=== PATIENT | female | born 1960 | race African-American/Black ===

== ENCOUNTER 2020-10-09 12:54 | Inpatient (IN) | payer MEDICAID ==
[2020-10-09] VITALS (7 sets, daily range): BP systolic 137–148; BP diastolic 68–96
[~2020-10-09] VITALS: Ht 172.7 cm; Wt 79.0 kg
[2020-10-09] MEDS ORDERED: ONDANSETRON HCL 4MG/2ML INJ IV STA ×2 (13:40→17:33)
[2020-10-09] MEDS ORDERED: MAGNESIUM/ALUMINUM HYDROXIDE/SIMETHICONE 30ML UDC PO STA (13:40)
[2020-10-09] MEDS ORDERED: SODIUM CHLORIDE 0.9% 500 ML IV ONE (13:45)
[2020-10-09 14:48] LABS: BASOPHILS % 0.3 % (0.0-2.0); CLARITY URINE CLEAR (CLEAR); COLOR URINE YELLOW (YELLOW); HEMOGLOBIN. 13.3 g/dL (12.0-16.0); KETONES URINE 3+ (NEGATIVE); LEUKOCYTE ESTERASE URINE NEGATIVE (NEGATIVE); MEAN CORPUSCULAR HEMOGLOBIN 29.3 pg (28.0-32.0); MEAN CORPUSCULAR VOLUME 86.4 fL (81.0-99.0); MEAN PLATELET VOLUME 9.9 fl (7.4-10.4); MONOCYTES % 2.7 % (2.0-8.0); NITRITE URINE NEGATIVE (NEGATIVE); OCCULT BLOOD URINE TRACE (NEGATIVE); PLATELET 316 x1000/uL (130-400); PROTEIN URINE 2+ (NEGATIVE); RED BLOOD CELL COUNT 4.52 mill/uL (4.2-5.4); RED CELL DISTRIBUTION WIDTH 13.5 % (11.6-14.6); SPECIFIC GRAVITY URINE 1.029 (1.005-1.030); UROBILINOGEN URINE 0.2 E.U./dL (0.2-1.0)
[2020-10-09 14:55] LABS: CHLORIDE 102 mEq/L (98-107)
[2020-10-09 14:59] LABS: ETHANOL BLOOD < 10 mg/dL
[2020-10-09 15:01] LABS: INR 1.1; PROTHROMBIN TIME 11.4 sec (9.6-11.0)
[2020-10-09 15:25] LABS: *AMPHETAMINES SCREEN URINE NEGATIVE (NEGATIVE); *BARBITURATES SCREEN URINE NEGATIVE (NEGATIVE); *BENZODIAZEPINES SCREEN URINE NEGATIVE (NEGATIVE); *COCAINE SCREEN URINE NEGATIVE (NEGATIVE); CANNABINOID URINE SCREEN NEGATIVE (NEGATIVE)
[2020-10-09 15:26] LABS: METHADONE URINE SCREEN NEGATIVE (NEGATIVE); OPIATES URINE SCREEN NEGATIVE (NEGATIVE); PHENCYCLIDINE URINE SCREEN NEGATIVE (NEGATIVE)
[2020-10-09] MEDS ORDERED: SODIUM CHLORIDE 0.9% 1,000 ML IV ONE (16:30)
[2020-10-09] MEDS ORDERED: MORPHINE SULFATE 4 MG/ML CPJ (NOT FOR IM USE) IV STA (17:33)
[2020-10-09] MEDS ORDERED: ASPIRIN 81MG TABLET PO ONE (17:45)
[2020-10-09] MEDS ORDERED: NITROGLYCERIN OINT 1GM/INCH UDPKT TD ONE (17:45)
[2020-10-09] MEDS ORDERED: NICARDIPINE 100MCG/ML 10ML VIAL (CATH LAB) IV ONE (19:00)
[2020-10-09] MEDS ORDERED: HEPARIN SODIUM 1,000 UNIT/1ML VIAL IV ONE (19:00)
[2020-10-09] MEDS ORDERED: NITROGLYCERIN 50MCG/ML 10ML VIAL (CATH LAB) IV ONE (19:00)
[2020-10-09] MEDS ORDERED: IODIXANOL 320MG/ML 200ML BOTTLE ONE (19:17)
[2020-10-09] MEDS ORDERED: LIDOCAINE HCL 1% 20ML VIAL (Pyxis) INJ ONE (19:17)
[2020-10-09] MEDS ORDERED: IOHEXOL-300 100 ML BOTTLE ONE (19:18)
[2020-10-09] MEDS ORDERED: MIDAZOLAM HCL 2 MG/2 ML VIAL ONE (19:18)
[2020-10-09] MEDS ORDERED: FENTANYL CITRATE/PF 50MCG/ML 2ML VIAL ONE (19:19)
[2020-10-09] MEDS ORDERED: HEPARIN 5000 UNITS/ML VIAL IV ONE (19:30)
[2020-10-09] MEDS ORDERED: ASPIRIN 325MG EC TABLET PO ONE (19:30)
[2020-10-09] MEDS ORDERED: ATROPINE SULFATE 1MG/10ML SYR IV PRN (20:30)
[2020-10-09] MEDS ORDERED: ACETAMINOPHEN 325MG TABLET PO PRN (20:30)
[2020-10-09] MEDS ORDERED: TICAGRELOR 90 MG TABLET PO ONE (20:39)
[2020-10-09] MEDS ORDERED: ASPIRIN 325MG TABLET ONE (20:40)
[2020-10-09] MEDS: METOPROLOL TARTRATE 25MG TABLET PO SCH (21:57)
[2020-10-09] MEDS: ATORVASTATIN CALCIUM 40MG TABLET PO SCH (21:58)
[2020-10-09] MEDS ORDERED: DEXTROSE 50% WATER 50ML SYRINGE IV PRN (22:30)
[2020-10-09] MEDS: BLOOD SUGAR DIAGNOSTIC STRIP TEST SCH (22:50)
[2020-10-09] MEDS: INSULIN LISPRO 100 UNITS/ML SUBCUT SCH (22:55)
[2020-10-10] VITALS (29 sets, daily range): BP systolic 83–147; BP diastolic 43–92
[2020-10-10 05:33] LABS: BASOPHILS % 0.1 % (0.0-2.0); EOSINOPHILS % 0.1 % (0.0-5.0); HEMOGLOBIN. 10.9 g/dL (12.0-16.0); LYMPHOCYTES % 10.2 % (20.0-50.0); MEAN CORPUSCULAR VOLUME 85.1 fL (81.0-99.0); MEAN PLATELET VOLUME 9.8 fl (7.4-10.4); MONOCYTES % 10.4 % (2.0-8.0); NEUTROPHILS % 79.2 % (40.0-76.0); PLATELET 281 x1000/uL (130-400); RED BLOOD CELL COUNT 3.87 mill/uL (4.2-5.4); RED CELL DISTRIBUTION WIDTH 13.5 % (11.6-14.6)
[2020-10-10] MEDS ORDERED: GLYB1TAB35 PO (07:27)
[2020-10-10] MEDS ORDERED: INSULIN (07:27)
[2020-10-10] MEDS: BLOOD SUGAR DIAGNOSTIC STRIP TEST SCH ×4 (07:45→20:53)
[2020-10-10] MEDS ORDERED: BLOOD SUGAR DIAGNOSTIC STRIP TEST SCH (07:50)
[2020-10-10] MEDS ORDERED: INSULIN LISPRO 100 UNITS/ML SUBCUT SCH (08:20)
[2020-10-10] MEDS: ASPIRIN 81MG TABLET PO SCH (08:23)
[2020-10-10] MEDS: TICAGRELOR 90 MG TABLET PO SCH ×2 (08:24→16:46)
[2020-10-10] MEDS: INSULIN LISPRO 100 UNITS/ML SUBCUT SCH ×4 (08:24→21:06)
[2020-10-10] MEDS: METOPROLOL TARTRATE 25MG TABLET PO SCH ×2 (09:00→21:00)
[2020-10-10] MEDS ORDERED: TICAGRELOR 90 MG TABLET PO SCH (09:00)
[2020-10-10] MEDS: SODIUM CHLORIDE 0.9% 1,000 ML IV SCH (09:58)
[2020-10-10] MEDS: INSULIN GLARGINE UD 100 UNITS/ML SYR SUBCUT SCH ×2 (10:32→21:05)
[2020-10-10] MEDS: ATORVASTATIN CALCIUM 40MG TABLET PO SCH (21:05)
[2020-10-11] VITALS (12 sets, daily range): BP systolic 113–160; BP diastolic 55–86
[2020-10-11] MEDS: SODIUM CHLORIDE 0.9% 1,000 ML IV SCH (06:33)
[2020-10-11] MEDS: BLOOD SUGAR DIAGNOSTIC STRIP TEST SCH ×2 (06:47→11:11)
[2020-10-11] MEDS: INSULIN LISPRO 100 UNITS/ML SUBCUT SCH ×2 (07:05→12:12)
[2020-10-11 07:10] LABS: BASOPHILS % 0.3 % (0.0-2.0); EOSINOPHILS % 0.5 % (0.0-5.0); HEMATOCRIT. 35.5 % (36.0-48.0); HEMOGLOBIN. 11.6 g/dL (12.0-16.0); LYMPHOCYTES % 22.3 % (20.0-50.0); MEAN CORPUSCULAR VOLUME 85.6 fL (81.0-99.0); MEAN PLATELET VOLUME 9.9 fl (7.4-10.4); MONOCYTES % 9.8 % (2.0-8.0); NEUTROPHILS % 67.1 % (40.0-76.0); PLATELET 280 x1000/uL (130-400); RED BLOOD CELL COUNT 4.14 mill/uL (4.2-5.4); RED CELL DISTRIBUTION WIDTH 13.3 % (11.6-14.6)
[2020-10-11 07:26] LABS: CHLORIDE 108 mEq/L (98-107)
[2020-10-11] MEDS: TICAGRELOR 90 MG TABLET PO SCH (08:11)
[2020-10-11] MEDS: ASPIRIN 81MG TABLET PO SCH (08:11)
[2020-10-11] MEDS: METOPROLOL TARTRATE 25MG TABLET PO SCH (08:11)
[2020-10-11] MEDS: INSULIN GLARGINE UD 100 UNITS/ML SYR SUBCUT SCH (09:36)
[2020-10-11] MEDS ORDERED: POTASSIUM CHLORIDE 20MEQ TABLET SR PO NR (10:30)
[2020-10-11] MEDS ORDERED: INSU100I28 SQ (10:37)
[2020-10-11] MEDS ORDERED: METO25TA6 MT (10:37)
[2020-10-11] MEDS ORDERED: LANC1COM2 MC (10:37)
[2020-10-11] MEDS ORDERED: FLAS1EAC2 TP (10:37)
[2020-10-11] MEDS ORDERED: LIP40 MT (10:37)
[2020-10-11] MEDS ORDERED: TICA90TA MT (10:37)
[2020-10-11] MEDS ORDERED: INSLIS SUBCUT (10:37)
[2020-10-11] MEDS ORDERED: ASPI-1497 MT (10:37)
== END 2020-10-11 15:09 | disposition home or self-care (01) | DRG 174 ==
LOC: ER 13:19 → EDBEDREQ 16:19 → CVICU 18:15 → EDBEDREQSVC 18:24 → EDBEDREQ 18:24 → ENRESERV 18:39 → CANBEDREQ 19:44 → 3WST 10-11 04:50
PROVIDERS: ADMIT Internal Medicine; ATTEND Internal Medicine
PROC: 027035Z Dilation of Coronary Artery, One Artery with Two Drug-eluting Intraluminal Devices, Percutaneous Approach (ICD-10-PCS; principal; 2020-10-09)
PROC: 4A023N7 Measurement of Cardiac Sampling and Pressure, Left Heart, Percutaneous Approach (ICD-10-PCS; 2020-10-09)
PROC: B2111ZZ Fluoroscopy of Multiple Coronary Arteries using Low Osmolar Contrast (ICD-10-PCS; 2020-10-09)
PROC: B2151ZZ Fluoroscopy of Left Heart using Low Osmolar Contrast (ICD-10-PCS; 2020-10-09)
DX: I21.02 ST elevation (STEMI) myocardial infarction involving left anterior descending coronary artery (principal); N17.9 Acute kidney failure, unspecified; E87.1 Hypo-osmolality and hyponatremia; E87.5 Hyperkalemia; E78.5 Hyperlipidemia, unspecified; D72.829 Elevated white blood cell count, unspecified; E87.6 Hypokalemia; E11.9 Type 2 diabetes mellitus without complications; I10 Essential (primary) hypertension; Z20.822 Contact with and (suspected) exposure to COVID-19; I25.2 Old myocardial infarction; Z79.4 Long term (current) use of insulin; Z79.899 Other long term (current) drug therapy; Z98.891 History of uterine scar from previous surgery
CPT/HCPCS: 36415; 71045; 74176; 80048; 80053; 80061; 80305; 80320; 81003; 82962; 83036; 83735; 84443; 84484; 85025; 87426; 92928; 93005; 93306; 93458; 93970; 99291; C1725; C1769; C1874; C1887; C1893; J1644; J1815; J2250; J2270; J2405; J3010; J3490; J7030; J7040; Q9967; G0480; J8499

== ENCOUNTER 2024-06-25 07:50 | Inpatient (IN) | payer MEDICAID ==
[~2024-06-25] VITALS: Ht 167.6 cm; Wt 69.1 kg
[~2024-06-25 07:50] MED LIST: ASPI-1497 MT; FLAS1EAC2 TP; GLYB-168 PO; INSLIS SUBCUT; INSU100I28 SQ; LANC1COM2 MC; LIP40 MT; METO25TA6 MT; TICA90TA MT
[2024-06-25] MEDS: SODIUM CHLORIDE 0.9% 1,000 ML IV ONE (09:01)
[2024-06-25] MEDS: PANTOPRAZOLE SODIUM 40 MG/VIAL IV ONE (09:01)
[2024-06-25 09:07] LABS: BASOPHILS % 0.3 % (0.0-2.0); HEMOGLOBIN. 13.7 g/dL (12.0-16.0); LYMPHOCYTES % 8.1 % (20.0-50.0); MEAN CORPUSCULAR HEMOGLOBIN 28.8 pg (28.0-32.0); MEAN PLATELET VOLUME 9.9 fl (7.4-10.4); MONOCYTES % 4.7 % (2.0-8.0); NEUTROPHILS % 86.9 % (40.0-76.0); PLATELET 287 x1000/uL (130-400); RED BLOOD CELL COUNT 4.78 mill/uL (4.2-5.4); RED CELL DISTRIBUTION WIDTH 15.3 % (11.6-14.6); WHITE BLOOD COUNT 12.9 x1000/uL (4.5-11.0)
[2024-06-25 09:12] LABS: CHLORIDE 106 mEq/L (98-107); POTASSIUM 4.5 mEq/L (3.5-5.1); SODIUM 142 mEq/L (136-145)
[2024-06-25 09:13] LABS: CALCIUM 9.9 mg/dL (8.7-10.4); CARBON DIOXIDE 22 mEq/L (21-32)
[2024-06-25 09:18] LABS: CREATININE 1.1 mg/dL (0.6-1.0); GLUCOSE 263 mg/dL (70-105); UREA NITROGEN BLOOD 20 mg/dL (9-23)
[2024-06-25 09:20] LABS: ALANINE AMINOTRANSFERASE 15 IU/L (10-49); ALBUMIN 4.8 g/dL (3.2-4.8); ASPARTATE AMINOTRANSFERASE 20 IU/L (<34); BILIRUBIN DIRECT 0.2 mg/dL (<=3.0); BILIRUBIN TOTAL 0.8 mg/dL (0.1-1.0); PROTEIN TOTAL 8.3 g/dL (6.0-8.3); PROTHROMBIN TIME 11.2 sec (9.6-11.0)
[2024-06-25 09:23] LABS: TROPONIN I HIGH SENSITIVITY 195 ng/L (3.0-34)
[2024-06-25] MEDS: IOHEXOL-300 100 ML BOTTLE ONE (10:35)
[2024-06-25] MEDS ORDERED: IPRATROPIUM/ALBUTEROL 0.5-3(2.5)MG/3ML NEB HHN PRN (13:45)
[2024-06-25 14:00] VITALS: BP 148/64; PULSE 110; RESP 20; TEMP 36.4
[2024-06-25] MEDS ORDERED: ENOXAPARIN 40MG/0.4ML SYR SUBCUT SCH (14:00)
[2024-06-25 14:07] LABS: CLARITY URINE CLEAR (CLEAR); COLOR URINE YELLOW (YELLOW); GLUCOSE URINE 3+ (NEGATIVE); KETONES URINE 3+ (NEGATIVE); LEUKOCYTE ESTERASE URINE NEGATIVE (NEGATIVE); NITRITE URINE NEGATIVE (NEGATIVE); OCCULT BLOOD URINE 1+ (NEGATIVE); PH URINE 5.5 (4.5-8.0); PROTEIN URINE 2+ (NEGATIVE); UROBILINOGEN URINE 0.2 E.U./dL (0.2-1.0)
[2024-06-25] MEDS: HYDRALAZINE 20MG/ML VIAL IV PRN (14:08)
[2024-06-25 14:46] LABS: BACTERIA URINE FEW; RBC URINE 0-2 /hpf (0-2); SQUAMOUS EPITHELIAL CELL URINE 1+ /lpf (RARE/1+); WBC URINE 0-2 /hpf (0-2); YEAST URINE NONE SEEN
[2024-06-25] MEDS: ONDANSETRON HCL 4MG/2ML INJ IV PRN (18:32)
[2024-06-25] MEDS: ASPIRIN 81MG TABLET PO SCH (18:32)
[2024-06-25] MEDS: ENOXAPARIN 80MG/0.8ML SYR SUBCUT SCH (18:34)
[2024-06-25] MEDS: ISOSORBIDE MONONITRATE 30MG TABLET SR 24HR PO SCH (18:35)
[2024-06-25] MEDS: LOSARTAN 25 MG TABLET PO SCH (18:36)
[2024-06-25 20:00] VITALS: BP 161/77; PULSE 98; RESP 18; TEMP 36.2; O2SAT 100
[2024-06-25 21:00] VITALS: BP 153/79
[2024-06-25] MEDS ORDERED: INSU100I24 SUBCUT (21:28)
[2024-06-25] MEDS ORDERED: EMPA10TA PO (21:28)
[2024-06-25 21:44] LABS: TROPONIN I HIGH SENSITIVITY 231 ng/L (3.0-34)
[2024-06-25] MEDS ORDERED: DEXTROSE 50% WATER 50ML SYRINGE IV PRN (22:00)
[2024-06-25] MEDS: MORPHINE SULFATE 2 MG/ML INJ (NOT FOR IM USE) IV NR (22:05)
[2024-06-25] MEDS: BLOOD SUGAR DIAGNOSTIC STRIP TEST SCH (23:17)
[2024-06-25] MEDS: INSULIN LISPRO 100 UNITS/ML SUBCUT SCH (23:17)
[2024-06-26] VITALS: BP 137/74; PULSE 98; RESP 16; TEMP 36.1; O2SAT 98
[2024-06-26 04:00] VITALS: BP 128/65; PULSE 91; RESP 19; TEMP 35.7; O2SAT 99
[2024-06-26 04:32] LABS: CREATINE KINASE MB FRACTION 2.1 ng/mL (0.5-3.6)
[2024-06-26 06:32] LABS: BASOPHILS % 0.4 % (0.0-2.0); HEMATOCRIT. 41.5 % (36.0-48.0); HEMOGLOBIN. 13.4 g/dL (12.0-16.0); LYMPHOCYTES % 11.2 % (20.0-50.0); MEAN CORPUSCULAR HEMOGLOBIN 28.4 pg (28.0-32.0); MEAN CORPUSCULAR HGB CONC 32.2 g/dL (31.0-37.0); MEAN CORPUSCULAR VOLUME 88.3 fL (81.0-99.0); MEAN PLATELET VOLUME 10.1 fl (7.4-10.4); MONOCYTES % 6.6 % (2.0-8.0); NEUTROPHILS % 81.8 % (40.0-76.0); PLATELET 301 x1000/uL (130-400); RED CELL DISTRIBUTION WIDTH 15.4 % (11.6-14.6); WHITE BLOOD COUNT 11.4 x1000/uL (4.5-11.0)
[2024-06-26 07:01] LABS: CHLORIDE 108 mEq/L (98-107); POTASSIUM 3.8 mEq/L (3.5-5.1); SODIUM 145 mEq/L (136-145)
[2024-06-26 07:02] LABS: CALCIUM 9.5 mg/dL (8.7-10.4); CARBON DIOXIDE 21 mEq/L (21-32)
[2024-06-26 07:07] LABS: GLUCOSE 254 mg/dL (70-105); UREA NITROGEN BLOOD 24 mg/dL (9-23)
[2024-06-26] MEDS ORDERED: IODIXANOL 320MG/ML 100 ML BOTTLE IV ONE (12:54)
[2024-06-26] MEDS ORDERED: LIDOCAINE HCL 1% 20ML VIAL ONE (12:54)
[2024-06-26] MEDS ORDERED: FENTANYL CITRATE/PF 50MCG/ML 2ML VIAL ONE (13:16)
[2024-06-26] MEDS ORDERED: MIDAZOLAM HCL 2 MG/2 ML VIAL ONE (13:17)
[2024-06-26] MEDS ORDERED: ASPIRIN 325MG TABLET ONE (14:11)
[2024-06-26] MEDS ORDERED: CLOPIDOGREL 75MG TABLET ONE (14:11)
[2024-06-26] MEDS ORDERED: HYDRALAZINE 20MG/ML VIAL ONE (14:13)
[2024-06-26] MEDS ORDERED: ATROPINE SULFATE 1MG/10ML SYR IV PRN (14:30)
[2024-06-26] MEDS: SODIUM CHLORIDE 0.45% 1,000 ML IV SCH (15:00)
[2024-06-26 17:00] VITALS: BP 147/92; PULSE 98; RESP 19; TEMP 36.2; O2SAT 100
[2024-06-26 20:00] VITALS: BP 163/74; PULSE 86; RESP 14; TEMP 36.3; O2SAT 99
[2024-06-26] MEDS: ATORVASTATIN CALCIUM 40MG TABLET PO SCH (20:56)
[2024-06-26] MEDS: INSULIN LISPRO 100 UNITS/ML SUBCUT SCH (20:56)
[2024-06-26] MEDS: METOPROLOL TARTRATE 25MG TABLET PO SCH (20:56)
[2024-06-26] MEDS: BLOOD SUGAR DIAGNOSTIC STRIP TEST SCH (20:56)
[2024-06-26] MEDS: PANTOPRAZOLE 40MG DR TABLET PO SCH (22:09)
[2024-06-26] MEDS ORDERED: DIPHENHYDRAMINE 50MG CAPSULE PO PRN (23:30)
[2024-06-26] MEDS: DIPHENHYDRAMINE 25MG CAPSULE PO PRN (23:40)
[2024-06-26] MEDS: MAGNESIUM/ALUMINUM HYDROXIDE/SIMETHICONE 30ML UDC PO PRN (23:41)
[2024-06-26] MEDS: ACETAMINOPHEN 325MG TABLET PO PRN (23:41)
[2024-06-27] VITALS (7 sets, daily range): BP systolic 114–163; BP diastolic 64–85; PULSE 65–84; RESP 15–22; TEMP 36.2–36.6; O2SAT 99–100
[2024-06-27] MEDS: BLOOD SUGAR DIAGNOSTIC STRIP TEST SCH (05:57)
[2024-06-27] MEDS: CLOPIDOGREL 75MG TABLET PO SCH (08:29)
[2024-06-27] MEDS: ISOSORBIDE MONONITRATE 30MG TABLET SR 24HR PO NR (15:00)
[2024-06-27] MEDS ORDERED: ISOS60TA76 PO (18:59)
[2024-06-27] MEDS ORDERED: LOSA25TA26 PO (18:59)
[2024-06-27] MEDS ORDERED: CLOP-31 PO (18:59)
[2024-06-27] MEDS ORDERED: LIP40 MT (18:59)
[2024-06-27] MEDS ORDERED: EMPA10TA PO (18:59)
[2024-06-27] MEDS ORDERED: ISOS30TA91 PO (18:59)
[2024-06-27] MEDS ORDERED: ASPI-1497 MT (18:59)
[2024-06-28] MEDS ORDERED: LOSARTAN 50 MG TABLET PO SCH (09:00)
[2024-06-28] MEDS ORDERED: ISOSORBIDE MONONITRATE 60MG TABLET SR 24HR PO SCH (09:00)
[2024-07-04] MEDS ORDERED: ISOS60TA76 PO (11:33)
[2024-07-04] MEDS ORDERED: AMOX-494 MT (11:33)
[2024-07-04] MEDS ORDERED: GLYB-168 MT (11:33)
[2024-07-04] MEDS ORDERED: ONDA-239 PO (11:33)
[2024-07-04] MEDS ORDERED: LANS30CA52 PO (11:33)
[2024-07-04] MEDS ORDERED: CLAR-44 PO (11:33)
[2024-07-04] MEDS ORDERED: METO25TA6 MT (11:33)
[2024-07-04] MEDS ORDERED: ASPI-1406 MT (11:33)
[2024-07-04] MEDS ORDERED: PANT40TA51 MT (11:33)
[2024-07-04] MEDS ORDERED: ATOR10TA69 MT (11:33)
[2024-07-04] MEDS ORDERED: GABA-1180 MT (11:33)
[2024-07-04] MEDS ORDERED: LOSA25TA26 MT (11:33)
[2024-07-04] MEDS ORDERED: CLOP75TA33 MT (11:33)
== END 2024-06-27 22:45 | disposition home or self-care (01) | DRG 174 ==
LOC: ER 07:50 → 7WST 10:51 → 3WST 06-26 17:21
PROVIDERS: ADMIT Internal Medicine; ATTEND Internal Medicine
PROC: 4A023N7 Measurement of Cardiac Sampling and Pressure, Left Heart, Percutaneous Approach (ICD-10-PCS; principal; 2024-06-26)
PROC: 027034Z Dilation of Coronary Artery, One Artery with Drug-eluting Intraluminal Device, Percutaneous Approach (ICD-10-PCS; 2024-06-26)
PROC: B2111ZZ Fluoroscopy of Multiple Coronary Arteries using Low Osmolar Contrast (ICD-10-PCS; 2024-06-26)
PROC: B2151ZZ Fluoroscopy of Left Heart using Low Osmolar Contrast (ICD-10-PCS; 2024-06-26)
DX: I21.4 Non-ST elevation (NSTEMI) myocardial infarction (principal); E11.9 Type 2 diabetes mellitus without complications; I10 Essential (primary) hypertension; E78.5 Hyperlipidemia, unspecified; I25.10 Atherosclerotic heart disease of native coronary artery without angina pectoris
CPT/HCPCS: 36415; 74177; 76705; 80048; 80076; 81003; 82550; 82553; 82962; 83036; 84484; 85025; 92928; 93005; 93306; 93458; 99285; A4606; C1769; C1874; C1887; C1893; J0360; J1644; J1650; J1815; J2250; J2270; J2405; J2470; J3010; J3490; J7030; Q0163; Q9967